=== PATIENT | female | born 1975 | race Two or more races ===

== ENCOUNTER 2018-02-22 12:04 | Outpatient (CLI) | payer OTHER | END 2018-02-22 12:17 | disposition home or self-care (01) | LOC: RAD 501 12:04 | DX: M25.571 Pain in right ankle and joints of right foot (principal); M25.572 Pain in left ankle and joints of left foot; M25.562 Pain in left knee ==

== ENCOUNTER → 2018-03-02 | Outpatient (CLI) | payer OTHER | END | disposition home or self-care (01) | LOC: TOM 13:48 | DX: M25.775 Osteophyte, left foot (principal); S92.352S Displaced fracture of fifth metatarsal bone, left foot, sequela; M61.07 Myositis ossificans traumatica, ankle and foot ==

== ENCOUNTER 2023-02-20 10:53 | Outpatient (CLI) | payer OTHER ==
[2023-02-23] MEDS ORDERED: ELIQUIS5 MG PO (15:08)
[2023-02-23] MEDS ORDERED: PREDNIS PO (15:08)
[2023-02-23] MEDS ORDERED: HUMIRA40 MG/0.2 SQ (15:09)
[2023-02-23] MEDS ORDERED: VICTOZ (15:10)
[2023-02-23] MEDS ORDERED: COZAAR50 MG PO (15:10)
[2023-02-23] MEDS ORDERED: LYRIC PO (15:11)
[2023-02-23] MEDS ORDERED: MYRBETRIQ50 MG PO (15:11)
[2023-02-23] MEDS ORDERED: [UNRECOGNIZED DRUG - OTHER] (15:12)
[2023-02-23] MEDS ORDERED: MS CONTIN60 M1 PO (15:13)
[2023-02-23] MEDS ORDERED: GLUMETZA1000 MG PO (15:13)
[2023-02-23] MEDS ORDERED: MS CONTIN30 M1 PO (15:14)
[2023-02-23] MEDS ORDERED: TOPROL XL25 M1 PO (15:15)
[2023-02-23] MEDS ORDERED: WELLBUTRIN XL300 MG PO (15:15)
[2023-02-23] MEDS ORDERED: OXAYDO5 MG PO (15:15)
== END 2023-02-20 10:56 | disposition home or self-care (01) ==
LOC: LAB 10:53
PROVIDERS: ATTEND Orthopaedic Surgery
DX: D64.89 Other specified anemias (principal); E88.89 Other specified metabolic disorders; D68.8 Other specified coagulation defects; N39.0 Urinary tract infection, site not specified; A49.02 Methicillin resistant Staphylococcus aureus infection, unspecified site; E11.9 Type 2 diabetes mellitus without complications; I10 Essential (primary) hypertension; I49.9 Cardiac arrhythmia, unspecified; Z76.89 Persons encountering health services in other specified circumstances

== ENCOUNTER 2023-02-27 07:19 | Day surgery (SDC) | payer OTHER ==
[~2023-02-27 07:19] MED LIST: COZAAR50 MG PO; ELIQUIS5 MG PO; GLUMETZA1000 MG PO; HUMIRA40 MG/0.2 SQ; LYRIC PO; MS CONTIN30 M1 PO; MS CONTIN60 M1 PO; MYRBETRIQ50 MG PO; OXAYDO5 MG PO; PREDNIS PO; TOPROL XL25 M1 PO; VICTOZ; WELLBUTRIN XL300 MG PO; [UNRECOGNIZED DRUG - OTHER]
== END 2023-02-27 16:35 | disposition home or self-care (01) ==
LOC: CIR.AMB 07:19
PROVIDERS: ATTEND Orthopaedic Surgery
DX: T84.84XA Pain due to internal orthopedic prosthetic devices, implants and grafts, initial encounter (principal); M86.8X6 Other osteomyelitis, lower leg

== ENCOUNTER 2023-03-09 09:51 | Outpatient (CLI) | payer OTHER | END 2023-03-09 09:54 | disposition home or self-care (01) | LOC: LAB 09:51 | PROVIDERS: ATTEND Orthopaedic Surgery | DX: N39.0 Urinary tract infection, site not specified (principal) ==

== ENCOUNTER 2024-12-25 06:34 | Outpatient (CLI) | payer OTHER ==
[2024-12-25 08:10] LABS: HEMATOCRIT 32.2 % (36.0-45.00); MEAN CELL VOLUME 85.2 fL (80.00-100.00); MEAN CORPUSCULAR HEMOGLOBIN 26.5 pg (27.00-32.0); MEAN CORPUSCULAR HGB CONC 31.1 g/dl (32.0-36.0); PLATELET COUNT 473 K/uL (150-450); RED BLOOD COUNT 3.78 M/uL (4.00-6.00)
[2024-12-25 08:15] LABS: RED CELL DISTRIBUTION WIDTH 20.3 % (11.5-14.5)
[2024-12-25 08:17] LABS: ERYTHROCYTE SEDIMENTATION RATE 81 mm/hr
[2024-12-25 09:05] LABS: CALCIUM 9.5 mg/dL (8.5-10.1); CREATININE SERUM 1.11 mg/dL (0.55-1.02); GFR 52.03; MAGNESIUM 2.3 mg/dL (1.8-2.4); POTASSIUM 4.27 mEq/L (3.5-5.1)
[2024-12-25 20:37] LABS: T4 FREE 0.75 NG/ML (0.76-1.46)
[2024-12-25 20:39] LABS: TSH 0.277 uIU/mL (0.358-3.74)
== END 2024-12-25 06:46 | disposition home or self-care (01) ==
LOC: LAB 06:34
PROVIDERS: ATTEND Orthopaedic Surgery
DX: E55.9 Vitamin D deficiency, unspecified (principal); M85.9 Disorder of bone density and structure, unspecified; E56.1 Deficiency of vitamin K; E04.2 Nontoxic multinodular goiter; E11.9 Type 2 diabetes mellitus without complications; D50.0 Iron deficiency anemia secondary to blood loss (chronic); I11.9 Hypertensive heart disease without heart failure

== ENCOUNTER → 2025-02-05 06:45 | Outpatient (CLI) | payer OTHER ==
[2025-02-05 07:48] LABS: HEMATOCRIT 33.6 % (36.0-45.00); HEMOGLOBIN 10.7 g/dL (12.0-15.00); MEAN CELL VOLUME 88.8 fL (80.00-100.00); MEAN CORPUSCULAR HEMOGLOBIN 28.4 pg (27.00-32.0); PLATELET COUNT 328 K/uL (150-450); RED BLOOD COUNT 3.79 M/uL (4.00-6.00); RED CELL DISTRIBUTION WIDTH 22.1 % (11.5-14.5)
[2025-02-05 08:01] LABS: ERYTHROCYTE SEDIMENTATION RATE 6 mm/hr
[2025-02-05 08:04] LABS: INR 0.96; PARTIAL THROMBOPLASTIN TIME 24.3 SECONDS (22.0-34.0); PH,URINE 6.5 (5.0-8.0); PROTHROMBIN TIME 10.5 SECONDS (9.0-11.5); URINE APPEARANCE Clear; URINE BILIRRUBIN Negative (NEGATIVE); URINE BLOOD Negative; URINE COLOR Yellow; URINE GLUCOSE Negative (NEGATIVE); URINE KETONE Trace (NEGATIVE); URINE LEUKOCYTE Small; URINE NITRATE Negative; URINE PROTEIN Trace (NEGATIVE); URINE UROBILINOGEN 0.2 E.U./dl
[2025-02-05 08:07] LABS: URINE BACTERIA 2380.5 uL (0.0-1933); URINE EPITHELIAL CELLS 28.6 uL (0.0-38.8); URINE RBC 37.7 uL (0.0-20.8); URINE WBC 211.5 uL (0.0-23.2)
[2025-02-05 08:08] LABS: URINE CAST 0.14 uL (0.0-1.40)
[2025-02-05 08:40] LABS: T4 FREE 0.61 NG/ML (0.76-1.46)
[2025-02-05 08:43] LABS: C-REACTIVE PROTEIN < 0.29 MG/DL (0.00-0.29); TSH 0.111 uIU/mL (0.358-3.74)
== END | disposition home or self-care (01) ==
LOC: LAB 06:45
DX: D50.0 Iron deficiency anemia secondary to blood loss (chronic) (principal); M06.1 Adult-onset Still's disease; M17.0 Bilateral primary osteoarthritis of knee